=== PATIENT | female | born 1945 | race Caucasian/White ===

== ENCOUNTER 2017-01-29 09:58 | Day surgery (SDC) | payer MEDICARE, OTHER ==
[2017-01-29] MEDS ORDERED: FENTANYL PF 100MCG/2ML VIAL IV ONE (15:15)
[2017-01-29] MEDS ORDERED: LIDOCAINE 2% MDV (20MG/ML) 20ML VIAL IV ONE (15:15)
[2017-01-29] MEDS ORDERED: PROPOFOL 10 MG/ML VIAL IV ONE (15:15)
--- NOTE | 2017-02-01 15:10 | Operative Note ---
DATE OF SURGERY: 01/29/2017 SURGEON: Farrah Ramos MD OPERATION: 1. ESOPHAGOGASTRODUODENOSCOPY. 2. COLONOSCOPY. INDICATIONS: This is a 71-year-old female with a history of gastroesophageal reflux disease and abdominal pain with diarrhea predominant irritable bowel syndrome who presented for both esophagogastroduodenoscopy and colonoscopy. POSTOPERATIVE DIAGNOSES: 1. Mild distal esophagitis. 2. Mild gastritis. 3. Normal duodenum. 4. Normal colonic mucosa with no neoplasm or ulcerative lesions. ANESTHESIA: Sedation is per Anesthesia. Pulse oximetry was monitored throughout the procedure to maintain O2 saturation of 90% or greater. Supplemental oxygen was administered via nasal cannula. Cardiac and vital signs were monitored throughout the duration of the procedure, and they were stable. The procedures of esophagogastroduodenoscopy and colonoscopy and risks and benefits of the procedures, including the risk of bleeding and perforation, among others, were explained to the patient who voiced understanding and desired to have the procedures done. Physical examination was performed, and the patient was found stable for sedation. PROCEDURE: The patient was placed in the left lateral position. Sedation was initiated. A plastic bite block was inserted into the oral cavity. The Olympus [id number] gastroscope was introduced into the oral cavity and advanced to the proximal esophagus without difficulty. The esophageal mucosa was carefully examined upon introduction of the gastroscope. The proximal, mid, and distal esophageal mucosa appeared normal. At the level of the Z line there was mild irregularity but no ulcers or any strictures noted. The gastroscope was then advanced into the stomach, and surveillance of the stomach revealed diffuse erythema along the gastric body and antrum but no ulcers were noted. The gastroscope was then advanced to the descending duodenum without difficulty. The duodenal bulb and descending duodenum appeared normal. The gastroscope was then withdrawn into the stomach and retroflexion was performed. There were no other lesions noted. The gastroscope was then straightened and withdrawn while carefully examining the gastric and esophageal mucosa. No other lesions noted. Multiple gastric and distal esophageal biopsies were obtained. He remained with stable vital signs and was repositioned for colonoscopy. A digital rectal exam was performed and showed some mild external hemorrhoids with no palpable rectal masses. An Olympus PCF-180AL colonoscope was then inserted into the rectum under direct visualization. It was advanced to the cecum without difficulty. The ileocecal valve and appendiceal orifice were identified and photographed. The colonic mucosa was carefully examined upon introduction of the colonoscope. There were no lesions noted. The colonoscope was then withdrawn while carefully examining the colonic mucosal surfaces. No lesions were noted. Multiple random colon biopsies were obtained to rule out microscopic colitis. In the rectum, retroflexion was performed and grade 1 internal hemorrhoids were noted. The colonoscope was then withdrawn and the procedures were terminated. The patient tolerated the procedure well without any immediate complications. He remained with stable vital signs and was transferred to the recovery room. RECOMMENDATIONS: 1. The patient should be on a high-fiber diet. 2. The patient is to have a repeat colonoscopy for screening purposes in about 5 years. Thank you for allowing me to participate in the care of your patient. Farrah Ramos MD CC: Dr. Anand CRAMER
== END 2017-01-29 12:20 | disposition home or self-care (01) ==
LOC: HOP 09:58
PROVIDERS: ATTEND Internal Medicine Gastroenterology
DX: K21.0 Gastro-esophageal reflux disease with esophagitis (principal); K64.0 First degree hemorrhoids; I10 Essential (primary) hypertension; E11.9 Type 2 diabetes mellitus without complications; Z79.84 Long term (current) use of oral hypoglycemic drugs
CPT/HCPCS: 45380; 43239; 00810; 88305; 88313; 88342; J3010